=== PATIENT | female | born 1995 | race Caucasian/White ===

== ENCOUNTER 2016-11-02 00:31 | Emergency (ER) | payer OTHER ==
[~2016-11-02] VITALS: Ht 170.2 cm; Wt 63.5 kg
[~2016-11-02 00:31] MED LIST: KEFLEX 500MG.500 MG PO; Mobic7.5 MG PO; NOMEDS; SERTRALINE 50MG50 MG PO
[2016-11-02] MEDS ORDERED: PRENATAL PLUS1 TA1 PO (00:37)
--- NOTE | 2016-11-02 00:40 | Emergency Room Report ---
History of Present Illness Time Seen by [id number] Presenting Problem in Triage Pt arrived:Walked Presenting Problem:C/O PRESSURE TO CHEST AND SHORTNESS OF BREATH. 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 N Clinical Suspician of Infection? N Mental Status: 1 - Regular (Normal Baseline) Sepsis Risk:Low Sepsis Risk Have you (or family members/close friends) recently traveled outside the [place]? N If Yes, where/when: Have you had exposure to infectious disease within the past month? N TB? Other? Specify: Source patient, RN notes reviewed, family, old records Exam Limitations no limitations Comment pt with ant chest pain with no fever or rash or trauma Cardiac Chest Pain Chest pain indicative of cardiac No Timing/Duration this evening Severity moderate ALLERGIES Coded Allergies: No Known Allergies (08/09/16) Home Medications Reported Medications MULTIVIT-MIN W/FE-FA ( Multivitamin Tablet) 1 TAB PO DAILY History Medical History General CAD? No Angina: No [place]: No Hypertension? No Hyperlipidemia? No CHF? No DVT? No PE? No COPD? No Asthma? No Anemia? No GERD? No Gastric ulcers? No GI Bleed? No Hernia? No Thyroid Problems? No Hypothyroidism? No CVA? No Seizures? No Diabetes? No Renal Insuffiency? No End Stage Renal Disease? No UTI? No Stones? No BPH? No GB Disease: No Nephritic Syndrome? No Asplenia? No Hepatitis? No Sickle Cell Disease? No Arthritis? No Migraines? No Cataracts? No Glaucoma? No MRSA? No HIV? No TB? No Anxiety? No Depression? No Cancer? No More? 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 Respiratory denies cough, denies shortness of breath, denies wheezing Cardiovascular see HPI, chest pain, denies palpitations, denies syncope Gastrointestinal denies abdominal pain, denies diarrhea, denies vomiting Genitourinary denies: dysuria, frequency, hesitancy, hematuria. Musculoskeletal denies back pain, denies gout, denies joint swelling, denies neck pain Skin denies rash Psychiatric/Neurological denies headache, denies seizure Physical Exam Vital Signs Vital Signs Date Time Temp Pulse Resp B/P Pulse O2 O2 Flow FiO2 Ox Delivery Rate 11/02 0131 79 18 119/59 100 11/02 0032 97.9 93 18 132/84 100 - WBC >12,000 or <4,000 or 10% bands? 2 or more SIRS Criteria Met? B/P:119/59 MAP:100 Creatinine >2.0? UA output<0.5ml/kg/hr for 2 hrs? Platelet count >100,000? Lactate >2.0mmol/1? INR >1.2 or PTT > than 60 sec? Evidence of Organ Dysfunction? Provider documented clinical suspician of infection? N Sepsis Criteria Count: 1 Sepsis Risk: Low Sepsis Risk General Appearance no apparent distress Eye Exam - bilateral eye PERRL, bilateral eye EOMI Ear, Nose, Throat normal ENT inspection Neck supple Respiratory Status No: respiratory distress. Lung Sounds bilateral: lungs clear. 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 No Results/Orders Laboratory Tests 11/02/16 0048: Sodium 136, Potassium 3.4 L, Chloride 104, Carbon Dioxide 24, BUN 8, Creatinine 0.5 L, Estimated Creat Clear 180, Estimated GFR (MDRD) 157, Glucose 73 L, Calcium 8.4 L, Total Bilirubin 0.5, AST 14 L, ALT 17, Alkaline Phosphatase 79, Creatine Kinase 35, CK-MB (CK-2) Rel Index 1.4, CK and CKMB Interp < 0.5, Troponin I < 0.02, Total Protein 6.2 L, Albumin 2.7 L, Globulin 3.5 H, Albumin/Globulin Ratio 0.8 L, WBC 7.6, RBC 3.63 L, Hgb 11.5 L, Hct 33.9 L, MCV 93.5, RDW 13.3, Plt Count 239, MPV 9.0, Gran % 79.3, Gran # 6.1, Lymphocytes % 15.5, Monocytes % 3.9, Eosinophils % 1.1, Basophils % 0.2, Lymphocytes # 1.2, Monocytes # 0.3, Eosinophils # 0.1, Basophils # 0.0, PUBS MCHC 33.9, MCH 31.7 H Current Medication Orders Sig/Troy Start time Last Medication Dose Route Stop Time Status Admin Sodium Chloride 10 ML PRN PRN 11/02 44 AC IV 11/03 37 Orders Procedure Date/time Status 12 LEAD EKG-BESSON (INITIAL) 11/02 38 Active ELECTROCARDIOGRAM REQUEST 11/02 38 Active IV SALINE LOCK 11/02 38 Active 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 of ischemic chgs Departure Departure Time of Disposition 211 Disposition DC Home or Self Care(routine) Clinical Impression Primary Impression: Chest pain Qualifiers: Chest pain type: unspecified Qualified Code: R07.9 - Chest pain, unspecified Secondary Impressions: Qualifiers: Weeks of gestation: 30 weeks Qualified Code: Z3A.30 - 30 weeks gestation of Condition STABLE Patient Instructions DI for Atypical Chest Pain Additional Instructions see your ob for follow up Discharge Counseling Counseled pt/family regarding diagnosis, test results, follow up needs ED Critical Care Critical Care No at [id number]
--- NOTE | 2016-11-02 00:40 | Emergency Room Report ---
History of Present Illness Time Seen by [id number] Presenting Problem in Triage Pt arrived:Walked Presenting Problem:C/O PRESSURE TO CHEST AND SHORTNESS OF BREATH. 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 N Clinical Suspician of Infection? N Mental Status: 1 - Regular (Normal Baseline) Sepsis Risk:Low Sepsis Risk Have you (or family members/close friends) recently traveled outside the [place]? N If Yes, where/when: Have you had exposure to infectious disease within the past month? N TB? Other? Specify: Source patient, RN notes reviewed, family, old records Exam Limitations no limitations Comment pt with ant chest pain with no fever or rash or trauma Cardiac Chest Pain Chest pain indicative of cardiac No Timing/Duration this evening Severity moderate ALLERGIES Coded Allergies: No Known Allergies (08/09/16) Home Medications Reported Medications MULTIVIT-MIN W/FE-FA ( Multivitamin Tablet) 1 TAB PO DAILY History Medical History General CAD? No Angina: No [place]: No Hypertension? No Hyperlipidemia? No CHF? No DVT? No PE? No COPD? No Asthma? No Anemia? No GERD? No Gastric ulcers? No GI Bleed? No Hernia? No Thyroid Problems? No Hypothyroidism? No CVA? No Seizures? No Diabetes? No Renal Insuffiency? No End Stage Renal Disease? No UTI? No Stones? No BPH? No GB Disease: No Nephritic Syndrome? No Asplenia? No Hepatitis? No Sickle Cell Disease? No Arthritis? No Migraines? No Cataracts? No Glaucoma? No MRSA? No HIV? No TB? No Anxiety? No Depression? No Cancer? No More? 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 Respiratory denies cough, denies shortness of breath, denies wheezing Cardiovascular see HPI, chest pain, denies palpitations, denies syncope Gastrointestinal denies abdominal pain, denies diarrhea, denies vomiting Genitourinary denies: dysuria, frequency, hesitancy, hematuria. Musculoskeletal denies back pain, denies gout, denies joint swelling, denies neck pain Skin denies rash Psychiatric/Neurological denies headache, denies seizure Physical Exam Vital Signs Vital Signs Date Time Temp Pulse Resp B/P Pulse O2 O2 Flow FiO2 Ox Delivery Rate 11/02 0131 79 18 119/59 100 11/02 0032 97.9 93 18 132/84 100 - WBC >12,000 or <4,000 or 10% bands? 2 or more SIRS Criteria Met? B/P:119/59 MAP:100 Creatinine >2.0? UA output<0.5ml/kg/hr for 2 hrs? Platelet count >100,000? Lactate >2.0mmol/1? INR >1.2 or PTT > than 60 sec? Evidence of Organ Dysfunction? Provider documented clinical suspician of infection? N Sepsis Criteria Count: 1 Sepsis Risk: Low Sepsis Risk General Appearance no apparent distress Eye Exam - bilateral eye PERRL, bilateral eye EOMI Ear, Nose, Throat normal ENT inspection Neck supple Respiratory Status No: respiratory distress. Lung Sounds bilateral: lungs clear. 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 No Results/Orders Laboratory Tests 11/02/16 0048: Sodium 136, Potassium 3.4 L, Chloride 104, Carbon Dioxide 24, BUN 8, Creatinine 0.5 L, Estimated Creat Clear 180, Estimated GFR (MDRD) 157, Glucose 73 L, Calcium 8.4 L, Total Bilirubin 0.5, AST 14 L, ALT 17, Alkaline Phosphatase 79, Creatine Kinase 35, CK-MB (CK-2) Rel Index 1.4, CK and CKMB Interp < 0.5, Troponin I < 0.02, Total Protein 6.2 L, Albumin 2.7 L, Globulin 3.5 H, Albumin/Globulin Ratio 0.8 L, WBC 7.6, RBC 3.63 L, Hgb 11.5 L, Hct 33.9 L, MCV 93.5, RDW 13.3, Plt Count 239, MPV 9.0, Gran % 79.3, Gran # 6.1, Lymphocytes % 15.5, Monocytes % 3.9, Eosinophils % 1.1, Basophils % 0.2, Lymphocytes # 1.2, Monocytes # 0.3, Eosinophils # 0.1, Basophils # 0.0, PUBS MCHC 33.9, MCH 31.7 H Current Medication Orders Sig/Troy Start time Last Medication Dose Route Stop Time Status Admin Sodium Chloride 10 ML PRN PRN 11/02 44 AC IV 11/03 37 Orders Procedure Date/time Status 12 LEAD EKG-BESSON (INITIAL) 11/02 38 Active ELECTROCARDIOGRAM REQUEST 11/02 38 Active IV SALINE LOCK 11/02 38 Active PATIENT SUPPORT PARTNER 11/02 38 Active COMPLETE METABOLIC PANEL 11/02 38 Complete CBC WITH AUTO DIFF 11/02 38 Complete CARDIAC ENZYMES 11/02 38 Complete CM/EKG CM/counselor marriage and family Rhythm Normal Sinus Rhythm EKG no evid. of ischemic chgs Departure Departure Time of Disposition 211 Disposition DC Home or Self Care(routine) Clinical Impression Primary Impression: Chest pain Qualifiers: Chest pain type: unspecified Qualified Code: R07.9 - Chest pain, unspecified Secondary Impressions: Qualifiers: Weeks of gestation: 30 weeks Qualified Code: Z3A.30 - 30 weeks gestation of Condition STABLE Patient Instructions DI for Atypical Chest Pain Additional Instructions see your ob for follow up Discharge Counseling Counseled pt/family regarding diagnosis, test results, follow up needs ED Critical Care Critical Care No at [id number]
[2016-11-02 00:59] LABS: HEMOGLOBIN 11.5 g/dL (12.2-16.2); LYMPH # 1.2 K/mm3 (0.7-4.5); LYMPH % 15.5 % (10-50.0)
[2016-11-02 01:17] LABS: BUN 8 mg/dL (7-18)
[2016-11-02 01:19] LABS: GFR (ESTIMATED) 157 ML/MIN (59-)
[2016-11-02 02:15] VITALS: BP 119/66
== END 2016-11-02 02:19 | disposition home or self-care (01) ==
LOC: ER 00:31
PROVIDERS: Emergency Medicine
DX: R07.9 Chest pain, unspecified (principal); Z3A.30 30 weeks gestation of pregnancy